=== PATIENT | female | born 1975 | race Caucasian/White ===

== ENCOUNTER → 2016-10-03 | Outpatient (CLI) | payer OTHER ==
--- NOTE | 2016-10-03 11:11 | REP ---
RIGHT BREAST ULTRASOUND (AXILLARY): 10/03/2016. Clinical history: Follow-up prior right breast ultrasound with mobile firm nodule. Hidradenitis. Comparison: Right breast ultrasound and mammogram 11/24/2015. Findings: In the right axilla, there is a subcutaneous nodule 6 x 5 x 3 mm. It is predominately hypoechoic, it is subcutaneous. I do not see color flow in it. No other findings or masses. Impression: 1. Small nodules subcutaneous area consistent with the palpable finding. This has internal echoes but no color flow. Findings most consistent with a small sebaceous cyst with inspissated secretions. No evidence of other nodules or mass. Stable examination. Signed by Wayne Giron MD 10/03/2016 05:17 P
== END ==
LOC: M RAD 10:00
PROVIDERS: ATTEND Family Medicine
DX: R92.8 Other abnormal and inconclusive findings on diagnostic imaging of breast (principal)

== ENCOUNTER → 2016-10-07 | Outpatient (CLI) | payer OTHER ==
--- NOTE | 2016-10-08 09:31 | REP ---
DIAGNOSTIC DIGITAL BILATERAL MAMMOGRAM: 10/07/2016. Comparison: Right breast US 10/03/2016, 2015 and bilateral mammogram 11/24/2015. Clinical history: Palpable lump right axilla. The patient has a finding most consistent with sebaceous cyst by ultrasound. This was stable from a year ago on ultrasound. A marker was placed by the technologist at that site. Findings: Two views for each breast are reviewed. The marker of the axillary nodule is not in the field of view despite standard positioning as it is high in the axilla. Two views show the breast parenchyma heterogeneously dense in a pattern fairly symmetric and unchanged from multiple prior studies. This pattern may reduce the sensitivity of mammography. No dominant masses, suspicious cluster of microcalcifications or secondary signs of malignancy are seen. IMPRESSION: BIRADS ACR category 1 negative. No evidence of malignancy. No mammographic findings or asymmetry. The ultrasound finding is not visible mammographically as it is quite high in the axilla and is subcutaneous, most likely a sebaceous cyst with inspissated secretions. Recommend followup mammography on an annual basis after she turns 42. (No sooner than September 2017) This mammogram was interpreted with the aid of an FDA-approved computer-aided detection system. A. Negative x-ray reports should not delay biopsy if a dominant or clinically suspicious mass is present. B. Four to eight percent of cancers are not identified by x-ray. C. Adenosis and dense breasts may obscure an underlying neoplasm The patient states she/he has not had a clinical breast exam in over a year. The patient letter being requested is M1 ([employer]). Signed by Wayne Giron MD 10/08/2016 09:31 P
== END ==
LOC: M RAD 15:29
PROVIDERS: ATTEND Family Medicine
DX: R92.8 Other abnormal and inconclusive findings on diagnostic imaging of breast (principal); N63 Unspecified lump in breast

== ENCOUNTER → 2017-02-13 | Outpatient (CLI) | payer OTHER ==
[2017-02-13 13:30] LABS: BASO # 0.1 K/mm3 (0.0-0.2); BASO % 1.3 % (0.0-1.0); EOS # 0.2 K/mm3 (0.0-0.50); EOS % 2.3 % (0.0-3.0); LARGE UNSTAINED CELL # 0.2 K/mm3 (0.0-0.4); LARGE UNSTAINED CELL % 2.7 % (0.0-4.0); LYMPH # 2.6 K/mm3 (1.5-4.5); LYMPH % 40.4 % (24.0-44.0); MEAN CORPUSCULAR HEMOGLOBIN 27.9 pg (27.0-33.0); MEAN CORPUSCULAR HGB CONC 32.5 g/dl (32.0-36.5); MEAN CORPUSCULAR VOLUME 85.9 fl (80.0-96.0); MONO # 0.3 K/mm3 (0.0-0.8); NEUTROPHILS # 3.2 K/mm3 (1.8-7.7); NEUTROPHILS % 49.4 % (36.0-66.0); PLATELET COUNT, AUTOMATED 267 k/mm3 (150-450); RED CELL DISTRIBUTION WIDTH 12.8 % (11.5-14.5); WHITE BLOOD COUNT 6.5 K/mm3 (4.0-10.0)
[2017-02-13 14:26] LABS: ALBUMIN 3.6 GM/DL (3.2-5.2); ALBUMIN/GLOBULIN RATIO 0.97 (1.00-1.93); ALKALINE PHOSPHATASE 104 U/L (45-117); ALT/SGPT 129 U/L (12-78); ANION GAP 8 MEQ/L (8-16); AST/SGOT 62 U/L (15-37); BILIRUBIN,TOTAL 1.1 MG/DL (0.2-1.0); BLOOD UREA NITROGEN 10 MG/DL (7-18); CALCIUM LEVEL 8.8 MG/DL (8.5-10.1); CARBON DIOXIDE LEVEL 26 MEQ/L (21-32); CHLORIDE LEVEL 101 MEQ/L (98-107); CHOLESTEROL LEVEL 235 MG/DL (<200); GLOMERULAR FILTRATION RATE > 60.0 (>60); GLUCOSE, FASTING 270 MG/DL (70-105); POTASSIUM SERUM 4.5 MEQ/L (3.5-5.1); SODIUM LEVEL 135 MEQ/L (136-145); TOTAL PROTEIN 7.3 GM/DL (6.4-8.2); TRIGLYCERIDES LEVEL 117 MG/DL (<150)
== END ==
LOC: M SMT 11:14
PROVIDERS: ATTEND Physician Assistant Medical
DX: Z13.29 Encounter for screening for other suspected endocrine disorder (principal); Z13.220 Encounter for screening for lipoid disorders; Z13.0 Encounter for screening for diseases of the blood and blood-forming organs and certain disorders involving the immune mechanism; E11.65 Type 2 diabetes mellitus with hyperglycemia

== ENCOUNTER → 2017-05-22 | Outpatient (CLI) | payer OTHER | LOC: M SMT 15:31 | PROVIDERS: ATTEND Physician Assistant Medical | DX: E11.65 Type 2 diabetes mellitus with hyperglycemia (principal) ==

== ENCOUNTER → 2017-11-17 | Outpatient (CLI) | payer OTHER ==
[2017-11-17 08:14] LABS: ANION GAP 6 MEQ/L (8-16); BLOOD UREA NITROGEN 11 MG/DL (7-18); CALCIUM LEVEL 8.9 MG/DL (8.5-10.1); CARBON DIOXIDE LEVEL 25 MEQ/L (21-32); CHLORIDE LEVEL 108 MEQ/L (98-107); CREATININE FOR GFR 0.76 MG/DL (0.55-1.30); GLOMERULAR FILTRATION RATE > 60.0 (>58); GLUCOSE, FASTING 275 MG/DL (70-100); POTASSIUM SERUM 4.8 MEQ/L (3.5-5.1); SODIUM LEVEL 139 MEQ/L (136-145)
[2017-11-17 08:17] LABS: ESTIMATED AVERAGE GLUCOSE 226 MG/DL (60-110); HEMOGLOBIN A1c 9.5 %
== END ==
LOC: M LAB 07:36
DX: E11.65 Type 2 diabetes mellitus with hyperglycemia (principal)

== ENCOUNTER → 2018-02-12 | Outpatient (CLI) | payer OTHER ==
[2018-02-12 13:44] LABS: ANION GAP 5 MEQ/L (8-16); BLOOD UREA NITROGEN 8 MG/DL (7-18); CALCIUM LEVEL 8.9 MG/DL (8.5-10.1); CARBON DIOXIDE LEVEL 29 MEQ/L (21-32); CHLORIDE LEVEL 103 MEQ/L (98-107); CREATININE FOR GFR 0.76 MG/DL (0.55-1.30); GLOMERULAR FILTRATION RATE > 60.0 (>58); GLUCOSE, FASTING 267 MG/DL (70-100); POTASSIUM SERUM 4.3 MEQ/L (3.5-5.1); SODIUM LEVEL 137 MEQ/L (136-145)
[2018-02-12 14:07] LABS: ESTIMATED AVERAGE GLUCOSE 252 MG/DL (60-110); HEMOGLOBIN A1c 10.4 %
== END ==
LOC: M SMT 09:09
DX: E11.65 Type 2 diabetes mellitus with hyperglycemia (principal)
CPT/HCPCS: 83036